=== PATIENT | male | born 1965 | race Caucasian/White ===

== ENCOUNTER 2016-10-16 14:38 | Inpatient (IN) | payer SELFPAY ==
[~2016-10-16] VITALS: Ht 167.6 cm; Wt 76.6 kg
[~2016-10-16 14:38] MED LIST: LEVEMIR100 U/M1 SC; LISINOPRIL10 MG PO; METFORMIN HCL1000 MG PO; SIMVASTATIN20 M1 PO
[2016-10-16 16:53] LABS: BASOPHIL % 1.3 % (0-2); PLATELET COUNT 217 x10^3mcL (130-400)
[2016-10-16 16:55] LABS: RED CELL DISTRIBUTION WIDTH 14.8 % (11.5-14.5)
[2016-10-16 17:03] LABS: CALCIUM 10.2 mg/dL (8.5-10.1); CARBON DIOXIDE 10.4 mmol/L (21-32); CREATININE SERUM 1.8 mg/dL (0.7-1.3); POTASSIUM SERUM 5.1 mmol/L (3.5-5.1)
[2016-10-16 17:07] LABS: ALBUMIN 3.6 g/dL (3.4-5.0); BILIRUBIN TOTAL 0.69 mg/dL (0.20-1.00); TOTAL PROTEIN, SERUM 7.6 g/dL (6.4-8.2)
[2016-10-16 17:50] LABS: UA SPECIFIC GRAVITY >=1.030 (1.005-1.035); microscopic required? YES; urine erythrocyte 1+ (NEGATIVE)
[2016-10-16 19:17] LABS: PHOSPHOROUS 4.9 mg/dL (2.5-4.9)
[2016-10-16 19:25] LABS: T3 TOTAL 0.34 ng/mL
[2016-10-16 19:26] LABS: FREE T4 0.72 ng/dL (0.76-1.46)
[2016-10-16 19:28] LABS: FREE THYROXINE INDEX 1.5 ug/dL (1.4-4.5); T4(THYROXINE) 4.6 ug/dL (4.7-13.3)
[2016-10-16 19:40] LABS: CHOLESTEROL/HDL RATIO 6.2
[2016-10-16 19:41] LABS: AMPHETAMINE QUAL UR POSITIVE (NEG <=1000)
[2016-10-16 21:00] VITALS: BP 162/91
[2016-10-16 23:26] VITALS: BP 111/64
[2016-10-17 00:27] LABS: CALCIUM 7.9 mg/dL (8.5-10.1); CARBON DIOXIDE 20.7 mmol/L (21-32); CHLORIDE SERUM 104 mmol/L (98-107); CREATININE SERUM 1.3 mg/dL (0.7-1.3); GFR1 > 60 mL/min; GLUCOSE SERUM 92 mg/dL (74-106); MAGNESIUM 1.4 mg/dL (1.8-2.4); PHOSPHOROUS 3.1 mg/dL (2.5-4.9); POTASSIUM SERUM 3.7 mmol/L (3.5-5.1); SODIUM SERUM 136 mmol/L (136-145)
[2016-10-17 03:28] VITALS: BP 104/53
[2016-10-17 04:45] LABS: CARBON DIOXIDE 21.5 mmol/L (21-32); CHLORIDE SERUM 105 mmol/L (98-107); CREATININE SERUM 1.1 mg/dL (0.7-1.3); GFR1 > 60 mL/min; GLUCOSE SERUM 130 mg/dL (74-106); PHOSPHOROUS 2.7 mg/dL (2.5-4.9); POTASSIUM SERUM 3.4 mmol/L (3.5-5.1); SODIUM SERUM 133 mmol/L (136-145)
[2016-10-17 08:00] VITALS: BP 120/66
[2016-10-17 08:15] LABS: CALCIUM 7.9 mg/dL (8.5-10.1); CHLORIDE SERUM 105 mmol/L (98-107); GFR1 > 60 mL/min; GLUCOSE SERUM 119 mg/dL (74-106); MAGNESIUM 2.4 mg/dL (1.8-2.4); PHOSPHOROUS 2.7 mg/dL (2.5-4.9); POTASSIUM SERUM 3.7 mmol/L (3.5-5.1); SODIUM SERUM 134 mmol/L (136-145)
[2016-10-17 12:00] VITALS: BP 115/69
[2016-10-17 13:02] LABS: CALCIUM 7.7 mg/dL (8.5-10.1); CARBON DIOXIDE 17.6 mmol/L (21-32); CHLORIDE SERUM 97 mmol/L (98-107); CREATININE SERUM 1.2 mg/dL (0.7-1.3); GFR1 > 60 mL/min; PHOSPHOROUS 2.9 mg/dL (2.5-4.9); POTASSIUM SERUM 4.3 mmol/L (3.5-5.1); SODIUM SERUM 127 mmol/L (136-145)
[2016-10-17 13:04] LABS: GLUCOSE SERUM 492 mg/dL (74-106)
[2016-10-17 18:59] LABS: CALCIUM 8.1 mg/dL (8.5-10.1); CARBON DIOXIDE 25.2 mmol/L (21-32); CHLORIDE SERUM 103 mmol/L (98-107); CREATININE SERUM 1.1 mg/dL (0.7-1.3); GFR1 > 60 mL/min; GLUCOSE SERUM 231 mg/dL (74-106); POTASSIUM SERUM 3.7 mmol/L (3.5-5.1); SODIUM SERUM 133 mmol/L (136-145)
[2016-10-17 19:29] LABS: BASOPHIL % 0.6 % (0-2); PLATELET COUNT 174 x10^3mcL (130-400); RED CELL DISTRIBUTION WIDTH 14.1 % (11.5-14.5)
[2016-10-17 22:06] VITALS: BP 101/59
[2016-10-18 02:46] LABS: CALCIUM 8.1 mg/dL (8.5-10.1); CARBON DIOXIDE 22.2 mmol/L (21-32); CHLORIDE SERUM 107 mmol/L (98-107); CREATININE SERUM 0.9 mg/dL (0.7-1.3); GFR1 > 60 mL/min; GLUCOSE SERUM 75 mg/dL (74-106); MAGNESIUM 1.7 mg/dL (1.8-2.4); PHOSPHOROUS 2.8 mg/dL (2.5-4.9); POTASSIUM SERUM 3.7 mmol/L (3.5-5.1); SODIUM SERUM 138 mmol/L (136-145)
[2016-10-18 05:54] VITALS: BP 103/57
[2016-10-18 07:00] LABS: BASOPHIL % 0.3 % (0-2); PLATELET COUNT 164 x10^3mcL (130-400); RED CELL DISTRIBUTION WIDTH 14.4 % (11.5-14.5)
[2016-10-18 07:35] LABS: CALCIUM 8.1 mg/dL (8.5-10.1); CARBON DIOXIDE 24.9 mmol/L (21-32); CHLORIDE SERUM 107 mmol/L (98-107); CREATININE SERUM 0.8 mg/dL (0.7-1.3); GFR1 > 60 mL/min; GLUCOSE SERUM 96 mg/dL (74-106); MAGNESIUM 1.7 mg/dL (1.8-2.4); PHOSPHOROUS 2.8 mg/dL (2.5-4.9); POTASSIUM SERUM 3.7 mmol/L (3.5-5.1); SODIUM SERUM 137 mmol/L (136-145)
[2016-10-18 07:36] LABS: ALBUMIN 1.9 g/dL (3.4-5.0)
[2016-10-18 10:06] VITALS: BP 104/65
[2016-10-18 11:54] VITALS: BP 104/65
[2016-10-18] MEDS ORDERED: LEVEMIR100 U/M1 SC (11:57)
[2016-10-18] MEDS ORDERED: BG MC (12:05)
[2016-10-18] MEDS ORDERED: ACCU-CHEK1 EACH MC (12:07)
[2016-10-18] MEDS ORDERED: INSULIN SYRING MC (12:20)
[2016-10-18 13:12] VITALS: BP 99/63
== END 2016-10-18 15:10 | disposition home or self-care (01) | DRG 637 ==
LOC: ED 14:38 → DU 17:40 → IC 17:40 → DU 10-17 20:12
PROVIDERS: Emergency Medicine; ADMIT Family Medicine
PROC: 05HM33Z Insertion of Infusion Device into Right Internal Jugular Vein, Percutaneous Approach (ICD-10-PCS; principal; 2016-10-16)
PROC: B543ZZA Ultrasonography of Right Jugular Veins, Guidance (ICD-10-PCS; 2016-10-16)
DX: E13.10 Other specified diabetes mellitus with ketoacidosis without coma (principal); N17.0 Acute kidney failure with tubular necrosis; E43 Unspecified severe protein-calorie malnutrition; E87.1 Hypo-osmolality and hyponatremia; I16.0 Hypertensive urgency; E83.42 Hypomagnesemia; E11.51 Type 2 diabetes mellitus with diabetic peripheral angiopathy without gangrene; E03.9 Hypothyroidism, unspecified; E78.5 Hyperlipidemia, unspecified; D53.9 Nutritional anemia, unspecified; R31.29 Other microscopic hematuria; F17.210 Nicotine dependence, cigarettes, uncomplicated; Z79.4 Long term (current) use of insulin; Z79.84 Long term (current) use of oral hypoglycemic drugs; Z91.14 Patient's other noncompliance with medication regimen; Z68.24 Body mass index [BMI] 24.0-24.9, adult
CPT/HCPCS: 36556; 36600; 80307; 82962; 84439; J1642; J1815; J2060; J3475; J3490; J7030; J7040; J8597; Q0092

== ENCOUNTER 2016-11-19 13:11 | Inpatient (IN) | payer MEDICAID ==
[~2016-11-19] VITALS: Ht 167.6 cm; Wt 66.2 kg
[~2016-11-19 13:11] MED LIST changes: +ACCU-CHEK1 EACH MC; +BG MC; +INSULIN SYRING MC
--- NOTE | 2016-11-19 13:25 | NUR ---
PT C/O DIZZINESS AND GEN WEAKNESS FOR 3 DAYS WITH FALL TODAY ONTO TILE AT HOME WITHOUT LOC. PATIENT WEAK UPON ARRIVAL WITH BP 154/109 IN TRIAGE AND BLOOD SUGAR 503. PATIENT ABLE TO WALK WITH SLIGHTLY UNSTEADY GAIT TO BED. CONNECTED TO [employer] HEATER AND MD AWARE. PT DENIES N/V/D/ OR FEVER AND IS SUPPOSED TO TAKE INSULIN AT HOME AND DOES NOT HAVE
--- NOTE | 2016-11-19 13:40 | NUR ---
DR PATTERSON AT BEDSIDE FOR EVAL
[2016-11-19 13:59] LABS: UA SPECIFIC GRAVITY 1.025 (1.005-1.035); microscopic required? YES; urine erythrocyte TRACE (NEGATIVE)
--- NOTE | 2016-11-19 14:05 | NUR ---
PT SLEEPING AT THIS TIME WITH EYE CLOSED AND BREATHING EVEN AND UNLABORED. NO S/S PAIN
[2016-11-19 14:11] LABS: PLATELET COUNT 225 x10^3mcL (130-400); RED CELL DISTRIBUTION WIDTH 13.3 % (11.5-14.5)
[2016-11-19 14:13] LABS: BASOPHIL % 2.8 % (0-2)
[2016-11-19 14:30] LABS: ALBUMIN 3.5 g/dL (3.4-5.0); BILIRUBIN TOTAL 0.8 mg/dL (0.20-1.00); CARBON DIOXIDE 10.9 mmol/L (21-32); CREATININE SERUM 1.7 mg/dL (0.7-1.3); MAGNESIUM 2.2 mg/dL (1.8-2.4); POTASSIUM SERUM 5.3 mmol/L (3.5-5.1); TOTAL PROTEIN, SERUM 7.1 g/dL (6.4-8.2)
--- NOTE | 2016-11-19 15:13 | NUR ---
REPORT GIVEN TO SUREKHA, DISTRIBUTION A CLASS LINEMAN
--- NOTE | 2016-11-19 15:30 | NUR ---
PT ARRIVED ON UNIT @ 1530 FROM ED ON RSCAPPOOSE ACCOMPANIED BY ED RN AND EMT. PT IS AOX4. PUPILS 2MM AND BRISK BILATERALLY. EENT FREE OF DISCHARGE. BREATHING IS EVEN AND UNLABORED ON ROOM AIR. LUNG SOUNDS ARE CLEAR BILATERALLY, DIMINISHED TO BASES. S1 S2 HEART SOUNDS AUSCULTATED. NSR. PULSES ARE STRONG X4. CAP REFILL < 3 S. SKIN IS WARM AND BALTAZAR. NO EDMEA NOTED. ABD IS SOFT AND ROUNDED. BOWEL SOUNDS ACTIVE X4Q. R AC INTACT AND PATENT, FLUSHES WELL, BLOOD RETURN PRESENT. PT DENIES PAIN AT THIS TIME. HOB ELEVATED, BED LOW, SIDE RAILS UP X2, CALL LIGHT IN REACH. WILL CONTINUE TO MONITOR.
[2016-11-19 16:33] VITALS: BP 161/107
[2016-11-19 16:37] LABS: T3 TOTAL 0.39 ng/mL
[2016-11-19 16:49] LABS: AMYLASE 30 U/L (25-115); LIPASE 138 IU/L (73-393)
[2016-11-19 16:49] LABS: AMPHETAMINE QUAL UR POSITIVE (NEG <=1000)
[2016-11-19 16:50] LABS: CHOLESTEROL 289 mg/dL (<200); CHOLESTEROL/HDL RATIO 4.4; HDL CHOLESTEROL 65 mg/dL (40-60); TRIGLYCERIDES 413 mg/dL (<150)
[2016-11-19 16:51] LABS: FREE T4 0.72 ng/dL (0.76-1.46)
[2016-11-19 16:52] LABS: FREE THYROXINE INDEX 1.2 ug/dL (1.4-4.5); T4(THYROXINE) 3.8 ug/dL (4.7-13.3)
--- NOTE | 2016-11-19 17:18 | NUR ---
DR RUSHING AND TECH AT BEDSIDE TO PERFORM CENTRAL LINE PLACEMENT. TIME OUT WAS COMPLETED @ 0757.
[2016-11-19 18:34] LABS: CALCIUM 7.9 mg/dL (8.5-10.1); CARBON DIOXIDE 16.7 mmol/L (21-32); CREATININE SERUM 1.4 mg/dL (0.7-1.3); MAGNESIUM 1.6 mg/dL (1.8-2.4); PHOSPHOROUS 3.1 mg/dL (2.5-4.9)
--- NOTE | 2016-11-19 19:16 | NUR ---
REPORT GIVEN TO MAGDALENA DAVILA. ALL CARE ENDORSED, QUESTIONS ANSWERED.
--- NOTE | 2016-11-19 19:35 | NUR ---
PT AOX4, PUPILS REACTIVE, NO HEADACHE. NO DRAINAGE EENT, RIJ INFUSING, TRACHEA MIDLINE, RESPIRATIONS EQUAL AND UNLABORED, LUNGS RHONCHI BUL, DIM BLL, NO DISTRESS. HR 89, BP 123/71, MAP 77, CHEST WALL STABLE, NO CP, DIZZINESS, OR SYNCOPE. SKIN APPROPRIATER FOR ETHNICITY, WARM AND DRY, CAP REFILL <3, NO EDEMA NOTED. NO CONTRACTURES OR DEFORMITIES. PT NPO, NO N/V. ABD SOFT, ROUND NONTENDER, NO BM, NO PENIAL DRAINAGE OR EDEMA, PT CALM AND COOPERATIVE, WILL CONTINUE TO MONITOR.
[2016-11-19 19:42] VITALS: BP 123/71
--- NOTE | 2016-11-19 21:22 | NUR ---
D5 1/2 NS INFUSING AT 250ML, INSULIN TITRATED TO 0.05 UNITS/KG, WILL CONTINUE TO MONITOR.
[2016-11-19 23:08] VITALS: BP 103/60
[2016-11-20 03:02] VITALS: BP 117/77
[2016-11-20 03:42] LABS: CALCIUM 7.5 mg/dL (8.5-10.1); CARBON DIOXIDE 22.9 mmol/L (21-32); CHLORIDE SERUM 103 mmol/L (98-107); CREATININE SERUM 1.1 mg/dL (0.7-1.3); GFR1 > 60 mL/min; GLUCOSE SERUM 156 mg/dL (74-106); MAGNESIUM 1.9 mg/dL (1.8-2.4); PHOSPHOROUS 2.7 mg/dL (2.5-4.9); POTASSIUM SERUM 3.5 mmol/L (3.5-5.1); SODIUM SERUM 132 mmol/L (136-145)
--- NOTE | 2016-11-20 03:50 | NUR ---
ANION GAP CLOSED X2, INSULIN SQ REG AND LEVOMIR ORDERED, WILL CONTINUE TO MONITOR.
[2016-11-20 05:00] LABS: BASOPHIL % 0.4 % (0-2); PLATELET COUNT 204 x10^3mcL (130-400); RED CELL DISTRIBUTION WIDTH 13.6 % (11.5-14.5)
--- NOTE | 2016-11-20 05:00 | NUR ---
D5 1/2 DC'D, INSULIN DRIP DC'D, NS STARTED 70ML/HR, WILL CONTINUE TO MONITOR
[2016-11-20 05:02] LABS: CALCIUM 7.4 mg/dL (8.5-10.1); CARBON DIOXIDE 35.4 mmol/L (21-32); CHLORIDE SERUM 104 mmol/L (98-107); GFR1 > 60 mL/min; GLUCOSE SERUM 157 mg/dL (74-106); MAGNESIUM 2.6 mg/dL (1.8-2.4); PHOSPHOROUS 3.1 mg/dL (2.5-4.9); POTASSIUM SERUM 3.5 mmol/L (3.5-5.1); SODIUM SERUM 134 mmol/L (136-145)
--- NOTE | 2016-11-20 07:15 | NUR ---
REPORT GIVEN TO LOLA IRBY, ALL QUESTIONS ADDRESSED, WILL ENDORSE CARE.
--- NOTE | 2016-11-20 07:18 | NUR ---
RECEIVED REPORT FROM MAGDALENA DAVILA.
[2016-11-20 07:45] VITALS: BP 126/85
--- NOTE | 2016-11-20 07:45 | NUR ---
PT IS AOX4. APPROPRIATE SPEECH. BREATHING IS EVEN AND UNLABORED ON ROOM AIR. LUNG SOUNDS ARE CLEAR BILATERALLY, DIMINISHED TO BASES. S1 S2 HEART SOUNDS AUSCULTATED. PULSES ARE STRONG X4. CAP REFILL < 3 S. SKIN IS WARM AND BALTAZAR. NO EDEMA NOTED. STOMACH IS SOFT AND ROUNDED. BOWEL SOUNDS ACTIVE X4Q. PT IS AMBULATORY, VOIDS FREELY. PT DENIES PAIN AT THIS TIME. R IJ CENTRAL LINE INTACT, PORTS PATENT, DRESSING CDI, INFUSING NS @ 70 CC/HR. HOB ELEVATED, BED LOW, SIDE RAILS UP X2. WILL CONTINUE TO MONITOR.
--- NOTE | 2016-11-20 08:03 | NUR ---
DR KENDRICK AT BEDSIDE TO ASSESS PT.
--- NOTE | 2016-11-20 10:35 | NUR ---
PT IS AOX4. COOPERATIVE AND FOLLOWS COMMANDS. BREATHING EVEN AND UNLABORED ON ROOM AIR. R IJ CENTRAL LINE INTACT, PORTS PATENT, DRESSING CDI, NS INFUSING @ 70 CC/HR. R AC INTACT, PATENT, DRESSING CDI. NSR. PT DENIES PAIN. NO DISTRESS NOTED. REPORT GIVEN TO CHLOE DAVILA. WILL TRANSFER PT TO MS/TELE VIA WHEELCHAIR WITH PT'S PERSONAL CLOTHING IN BELONGINGS BAG.
[2016-11-20 10:47] VITALS: BP 115/77
--- NOTE | 2016-11-20 10:47 | NUR ---
RESUMED CARE FOR Pt. FROM ICU. Pt. AAOX4. RESPIRATIONS EVEN AND UNLABORED ROOM AIR. DENIES PAIN/DISCOMFORT. NO DISTRESS NOTED. CENTRAL LINE AT RIGHT IJ PATENT AND INTACT WITH DSG CDI. IV AT RIGHT AC SALINE LOCKED. PLACED Pt. ON TELE 19, NSR HR 81. BED LOW/LOCKED. CALL LIGHT IN REACH.
--- NOTE | 2016-11-20 14:21 | NUR ---
Pt. BP 88/51 MAP 62 HR 81. Pt. ALERT, AWAKE AND ORIENTED. Pt. ASYMPTOMATIC, DENIES DIZZINESS/PAIN/DISCOMFORT. DR. RUSHING NOTIFIED.
[2016-11-20 18:01] VITALS: BP 97/61
--- NOTE | 2016-11-20 18:20 | NUR ---
Pt. AAOX4. RESPIRATIONS EVEN AND UNLABORED. DENIES PAIN/DISCOMFORT AT THIS TIME. NO DISTRESS NOTED. TELE IN PLACE. IVF RUNNING TO CENTRAL LINE AT RIGHT IJ PATENT AND INTACT. IV AT RIGHT AC SALINE LOCKED. BED LOW/LOCKED. CALL LIGHT IN REACH.
--- NOTE | 2016-11-20 20:04 | NUR ---
RECEIVED PT IN BED AAOX4 , PT APPEARS ANXIOUS , LUNG SOUNDS CTA , ABD SOFT BS ACTIVE X4, ON TELE NUMBER 19 THAT SHOWS NSR , HL TO RH AND CVP LINE TRIPLE LUMEN TO RIJ INTACT WITH NS AT 70ML/HR . CALL LIGHT WITHIN PT'S REACH , WILL CON'T TO MONITOR AND ASSIT PT WITH CARE.
[2016-11-20 20:43] VITALS: BP 92/51
--- NOTE | 2016-11-20 21:00 | NUR ---
PATIENT'S PLAN OF CARE WAS DISCUSSED AND REVIEWED WITH ELECTROCARDIOGRAPH TECHNICIAN: MAYELA SOLIMAN I HAVE REVIEWED THE DATA COLLECTION BY ELECTROCARDIOGRAPH TECHNICIAN (NAME): MAYELA SOLIMAN ENTERED ON (DATE/TIME): 11/20/161956 I CONCUR WITH THE DATA AND ANY EXCEPTIONS OR COMMENTS ARE LISTED BELOW: AGREE WITH ASSESSMENTS
--- NOTE | 2016-11-21 04:40 | NUR ---
PT'S IN BED AWAKE WATCHING TV TELE NSR , PIV INTACT INFUSNG WELL .
[2016-11-21 05:33] VITALS: BP 89/55; BP 97/66
--- NOTE | 2016-11-21 05:54 | NUR ---
BP 96/66 HR 86 PT'S ASYMPTOMATIC AT THE MOMENT .
--- NOTE | 2016-11-21 06:25 | NUR ---
PT'S IN BED AWAKE WATCHING TV PIV INTACT INFUSINGWELL , TELE NSR .
[2016-11-21 06:45] LABS: CARBON DIOXIDE 23.4 mmol/L (21-32); CHLORIDE SERUM 106 mmol/L (98-107); CREATININE SERUM 0.8 mg/dL (0.7-1.3); GFR1 > 60 mL/min; GLUCOSE SERUM 95 mg/dL (74-106); MAGNESIUM 1.8 mg/dL (1.8-2.4); PHOSPHOROUS 2.6 mg/dL (2.5-4.9); SODIUM SERUM 138 mmol/L (136-145)
[2016-11-21 07:08] LABS: BASOPHIL % 0.3 % (0-2); PLATELET COUNT 189 x10^3mcL (130-400); RED CELL DISTRIBUTION WIDTH 13.4 % (11.5-14.5)
--- NOTE | 2016-11-21 07:20 | NUR ---
RECEIVED Pt. AAOX4. RESPIRATIONS EVEN AND UNLABORED. DENIES PAIN/DISCOMFORT. NO DISTRESS NOTED. IVF RUNNING TO CENTRAL LINE AT RIGHT IJ PATENT AND INTACT. TELE IN PLACE. IV AT RIGHT AC SALINE LOCKED. TELE IN PLACE NSR HR 88. BED LOW/LOCKED. CALL LIGHT IN REACH.
--- NOTE | 2016-11-21 08:10 | NUR ---
MADE ROUNDS WITH DR. FLORES AND MEDICINE TEAM, Pt. POSSIBLE DISCHARGE TODAY AND AGREED WITH PLAN OF CARE.
[2016-11-21 09:19] VITALS: BP 103/60
[2016-11-21] MEDS ORDERED: METFORMIN HCL850 MG PO (10:20)
[2016-11-21] MEDS ORDERED: LANTUS SOLOS100 U/M1 SQ (10:22)
[2016-11-21] MEDS ORDERED: INSULIN PEN NE1 EAC1 MC (10:23)
--- NOTE | 2016-11-21 10:45 | NUR ---
CENTRAL LINE AT RIGHT IJ REMOVED WITH CATH INTACT. PRESSURE APPLIED X 5 MINUTES NO BLEEDING NOTED. DSG CDI. Pt. TOLERATED PROCEDURE WELL. Pt. DENIES PAIN/DISCOMFORT. NO DISTRESS NOTED.
[2016-11-21] MEDS ORDERED: HUMULIN R100 U/1 M1 SC (11:00)
[2016-11-21 13:01] VITALS: BP 111/65
--- NOTE | 2016-11-21 13:35 | NUR ---
Pt. AAOX4. RESPIRATIONS EVEN AND UNLABORED. DENIES PAIN/DISCOMFORT. NO DISTRESS NOTED. ALL RX AND DISCHARGE INSTRUCTIONS EXPLAINED TO Pt. AND VERBALIZED UNDERSTANDING. Pt. REPORTED CHECKING HIS OWN BLOOD SUGAR AND GIVING HIS OWN INSULIN AT HOME. IV AT LEFT AC REMOVED WITH CATH INTACT. TELE 19 RETURNED. DSG CDI AT RIGHT SIDE OF NECK OLD CENTRAL LINE SITE. Pt. LEFT WITH ALL BELONGINGS.
== END 2016-11-21 13:45 | disposition home or self-care (01) | DRG 420 ==
LOC: ED 13:11 → IC 14:25 → DU 11-20 10:46
PROVIDERS: Emergency Medicine; Family Medicine; ADMIT Family Medicine
DX: E13.10 Other specified diabetes mellitus with ketoacidosis without coma (principal); N17.0 Acute kidney failure with tubular necrosis; E87.1 Hypo-osmolality and hyponatremia; E87.5 Hyperkalemia; E83.42 Hypomagnesemia; F15.10 Other stimulant abuse, uncomplicated; R00.0 Tachycardia, unspecified; D75.89 Other specified diseases of blood and blood-forming organs; E78.5 Hyperlipidemia, unspecified; I10 Essential (primary) hypertension; Z79.4 Long term (current) use of insulin; Z68.23 Body mass index [BMI] 23.0-23.9, adult; F17.210 Nicotine dependence, cigarettes, uncomplicated; Z91.19 Patient's noncompliance with other medical treatment and regimen
CPT/HCPCS: 36556; 36600; 80307; 82962; 83880; 84439; C9113; J1170; J1642; J1815; J2060; J3475; J3490; J7030; Q0092

== ENCOUNTER 2018-11-07 13:23 | Inpatient (IN) | payer OTHER ==
[~2018-11-07] VITALS: Ht 170.2 cm; Wt 81.0 kg
[~2018-11-07 13:23] MED LIST changes: +HUMULIN R100 U/1 M1 SC; +INSULIN PEN NE1 EAC1 MC; +LANTUS SOLOS100 U/M1 SQ; +METFORMIN HCL850 MG PO
[2018-11-07 14:46] LABS: BASOPHIL % 0.4 % (0-2); PLATELET COUNT 253 x10^3mcL (130-400)
[2018-11-07 15:37] LABS: ALBUMIN 3.9 g/dL (3.4-5.0); BILIRUBIN TOTAL 1.7 mg/dL (0.20-1.00); CALCIUM 9.6 mg/dL (8.5-10.1); CARBON DIOXIDE 15.2 mmol/L (21-32); CREATININE SERUM 1.9 mg/dL (0.7-1.3); TOTAL PROTEIN, SERUM 8.2 g/dL (6.4-8.2)
[2018-11-07 17:45] VITALS: BP 136/97
[2018-11-07 19:30] VITALS: BP 139/89
[2018-11-07 20:05] LABS: CREATININE SERUM 1.5 mg/dL (0.7-1.3); MAGNESIUM 1.9 mg/dL (1.8-2.4); PHOSPHOROUS 3.2 mg/dL (2.5-4.9); POTASSIUM SERUM 3.9 mmol/L (3.5-5.1)
[2018-11-07 23:37] VITALS: BP 132/92
[2018-11-08 00:28] LABS: CALCIUM 7.8 mg/dL (8.5-10.1); CARBON DIOXIDE 22.2 mmol/L (21-32); CHLORIDE SERUM 102 mmol/L (98-107); CREATININE SERUM 1.2 mg/dL (0.7-1.3); GFR1 > 60 mL/min; GLUCOSE SERUM 114 mg/dL (74-106); MAGNESIUM 1.9 mg/dL (1.8-2.4); PHOSPHOROUS 3.5 mg/dL (2.5-4.9); POTASSIUM SERUM 3.5 mmol/L (3.5-5.1); SODIUM SERUM 133 mmol/L (136-145)
[2018-11-08 03:45] VITALS: BP 151/98
[2018-11-08 04:43] LABS: CHLORIDE SERUM 102 mmol/L (98-107); CREATININE SERUM 1.2 mg/dL (0.7-1.3); GFR1 > 60 mL/min; GLUCOSE SERUM 237 mg/dL (74-106); MAGNESIUM 1.8 mg/dL (1.8-2.4); PHOSPHOROUS 3.4 mg/dL (2.5-4.9); POTASSIUM SERUM 4.3 mmol/L (3.5-5.1); SODIUM SERUM 133 mmol/L (136-145)
[2018-11-08 07:45] VITALS: BP 141/91
[2018-11-08 08:42] LABS: CALCIUM 7.8 mg/dL (8.5-10.1); CARBON DIOXIDE 13.5 mmol/L (21-32); CHLORIDE SERUM 101 mmol/L (98-107); GFR1 > 60 mL/min; GLUCOSE SERUM 253 mg/dL (74-106); MAGNESIUM 1.8 mg/dL (1.8-2.4); POTASSIUM SERUM 4.3 mmol/L (3.5-5.1); SODIUM SERUM 132 mmol/L (136-145)
[2018-11-08 08:49] VITALS: Ht 170.2 cm; Wt 81.0 kg
[2018-11-08 11:25] VITALS: BP 141/91
[2018-11-08 13:10] LABS: CALCIUM 7.9 mg/dL (8.5-10.1); CARBON DIOXIDE 18.8 mmol/L (21-32); CHLORIDE SERUM 99 mmol/L (98-107); GFR1 > 60 mL/min; GLUCOSE SERUM 333 mg/dL (74-106); MAGNESIUM 1.8 mg/dL (1.8-2.4); PHOSPHOROUS 2.3 mg/dL (2.5-4.9); POTASSIUM SERUM 4.1 mmol/L (3.5-5.1); SODIUM SERUM 129 mmol/L (136-145)
[2018-11-08 15:35] VITALS: BP 143/95
[2018-11-08 16:44] LABS: CALCIUM 7.9 mg/dL (8.5-10.1); CARBON DIOXIDE 26.2 mmol/L (21-32); CHLORIDE SERUM 102 mmol/L (98-107); CREATININE SERUM 1.1 mg/dL (0.7-1.3); GFR1 > 60 mL/min; GLUCOSE SERUM 188 mg/dL (74-106); MAGNESIUM 1.8 mg/dL (1.8-2.4); PHOSPHOROUS 1.8 mg/dL (2.5-4.9); POTASSIUM SERUM 3.6 mmol/L (3.5-5.1); SODIUM SERUM 134 mmol/L (136-145)
[2018-11-08 19:40] VITALS: BP 155/100
[2018-11-08 23:37] VITALS: BP 154/96
[2018-11-09 05:03] VITALS: BP 157/101
[2018-11-09 07:17] LABS: ALKALINE PHOSPHATASE 103 U/L (46-116); ALT/SGPT 26 U/L (16-63); AST/SGOT 19 U/L (15-37); CALCIUM 8.3 mg/dL (8.5-10.1); CARBON DIOXIDE 22.3 mmol/L (21-32); CHLORIDE SERUM 103 mmol/L (98-107); CREATININE SERUM 0.7 mg/dL (0.7-1.3); GFR1 > 60 mL/min; GLUCOSE SERUM 139 mg/dL (74-106); POTASSIUM SERUM 3.2 mmol/L (3.5-5.1); SODIUM SERUM 137 mmol/L (136-145)
[2018-11-09 07:31] LABS: ALBUMIN 2.6 g/dL (3.4-5.0); TOTAL PROTEIN, SERUM 5.6 g/dL (6.4-8.2)
[2018-11-09 07:54] VITALS: BP 155/93
[2018-11-09 08:28] LABS: BASOPHIL % 0.4 % (0-2); PLATELET COUNT 204 x10^3mcL (130-400); RED CELL DISTRIBUTION WIDTH 13.5 % (11.5-14.5)
[2018-11-09 12:07] VITALS: BP 137/91
[2018-11-09 14:06] VITALS: BP 137/91
== END 2018-11-09 14:51 | disposition home or self-care (01) | DRG 420 ==
LOC: ED 13:23 → IC 16:12 → DU 11-08 22:30 → MU 11-09 04:05
PROVIDERS: Emergency Medicine; ADMIT Internal Medicine Pulmonary Disease
DX: E11.10 Type 2 diabetes mellitus with ketoacidosis without coma (principal); E78.00 Pure hypercholesterolemia, unspecified; E86.0 Dehydration; F17.210 Nicotine dependence, cigarettes, uncomplicated; I10 Essential (primary) hypertension; Z79.4 Long term (current) use of insulin; Z79.899 Other long term (current) drug therapy
CPT/HCPCS: 36600; 82962; J1815; J3480; J7030